=== PATIENT | female | born 1970 | race Hispanic/Latino ===

== ENCOUNTER 2022-11-18 06:52 | Emergency (ER) | payer OTHER ==
[~2022-11-18] VITALS: Ht 162.6 cm; Wt 77.1 kg
[2022-11-18] MEDS ORDERED: IOHEXOL-350 75 ML VIAL IV ONE (07:21)
[2022-11-18 07:28] LABS: BASOPHILS % (AUTO) 0.2 % (0.0-5.0); EOSINOPHILS % (AUTO) 0.6 % (0.0-8.0); HEMATOCRIT 40.4 % (36-48); LYMPHOCYTES % (AUTO) 9.9 % (21.0-51.0); MEAN CORPUSCULAR HEMOGLOBIN 30.4 pg (27.0-33.0); MEAN CORPUSCULAR HGB CONC 32.9 g/dL (32.0-36.0); MEAN CORPUSCULAR VOLUME 92.2 fL (79-99); MONOCYTES % (AUTO) 5.3 % (3.0-13.0); NEUTROPHILS % (AUTO) 82.8 % (40.0-77.0); PLATELET COUNT (AUTO) 225 K/uL (130-400); RED BLOOD CELL COUNT(AUTO) 4.38 MIL/uL (4.00-5.50); RED CELL DISTRIBUTION WIDTH 12.7 % (11.0-15.5); WHITE BLOOD COUNT (AUTO) 17.9 K/uL (4.8-10.8)
[2022-11-18] MEDS ORDERED: ONDANSETRON 4MG INJ IVP ONE ×2 (07:30→08:00)
[2022-11-18] MEDS ORDERED: 0.9%NACL 1000ML 1,000 ML IV ONE (07:30)
[2022-11-18] MEDS ORDERED: MORPHINE 4 MG SYG IM ONE (07:30)
[2022-11-18 07:39] LABS: CREATININE 0.7 mg/dL (0.5-1.5); POTASSIUM 3.7 mmol/L (3.5-5.1)
[2022-11-18 07:44] LABS: TOTAL PROTEIN, SERUM 7.7 g/dL (6.0-8.3)
[2022-11-18 07:48] LABS: INR 0.93 (0.85-1.15); PROTHROMBIN TIME 10.1 SEC (9.6-11.6)
[2022-11-18 07:49] LABS: PARTIAL THROMBOPLASTIN TIME 24.3 SEC (26.3-35.5)
[2022-11-18 08:08] LABS: APPEARANCE,URINE CLEAR (CLEAR); BILIRUBIN,URINE NEGATIVE (NEGATIVE); COLOR,URINE YELLOW (YELLOW); GLUCOSE, URINE (UA) NEGATIVE (NEGATIVE); KETONES,URINE NEGATIVE (NEGATIVE); LEUKOCYTE ESTERASE ,URINE NEGATIVE Leu/uL (NEGATIVE); NITRATE,URINE NEGATIVE (NEGATIVE); OCCULT BLOOD,URINE MODERATE (NEGATIVE); PROTEIN,URINE TRACE mg/dL (NEGATIVE); UROBILINOGEN,URINE 0.2 mg/dL (0.2-1.0)
[2022-11-18 08:19] LABS: BACTERIA,URINE Few /HPF (None Seen); WBC,URINE None Seen /HPF (0-1)
[2022-11-18 08:21] LABS: SQUAMOUS EPITHELIAL CELL,UR Few /HPF (0-2)
[2022-11-18] MEDS ORDERED: TRAM50TA4 PO (11:55)
[2022-11-18] MEDS ORDERED: IBUP-2070 PO (11:55)
[2022-11-18] MEDS ORDERED: LIDOP TP (11:55)
[2022-11-18 15:13] VITALS: BP 107/74
== END 2022-11-18 15:56 | disposition home or self-care (01) ==
LOC: EDH 06:52
DX: S32.048A Other fracture of fourth lumbar vertebra, initial encounter for closed fracture (principal); S50.12XA Contusion of left forearm, initial encounter; S60.212A Contusion of left wrist, initial encounter; Z98.890 Other specified postprocedural states; W18.39XA Other fall on same level, initial encounter; Y93.89 Activity, other specified; Y92.89 Other specified places as the place of occurrence of the external cause; Y99.8 Other external cause status
CPT/HCPCS: 99291; 70450; 96361; 96375; 80053; 83690; 85025; 85610; 85730; 86850; 86900; 86901; 81001; 36415; 73100; 73090; 71045; 73502 ×2; 72125; 74177; 96372; J7030; J2405; J2270; Q9967